=== PATIENT | male | born 1945 | race Caucasian/White ===

== ENCOUNTER 2017-02-15 12:05 | Observation (INO) | payer MEDICARE, BC ==
[~2017-02-15] VITALS: Ht 188 cm; Wt 93.0 kg
[2017-02-15 13:39] LABS: HEMOGLOBIN 15.6 gm/dl (14.0-17.5); RED BLOOD COUNT 4.99 M/UL (4.20-5.50); WHITE BLOOD COUNT 7.8 K/UL (4.5-11.0)
[2017-02-15 14:05] LABS: BUN/CREATININE RATIO 14 (0-10)
[2017-02-16 05:04] LABS: HEMOGLOBIN 15.9 gm/dl (14.0-17.5); RED BLOOD COUNT 5.06 M/UL (4.20-5.50); WHITE BLOOD COUNT 8.3 K/UL (4.5-11.0)
[2017-02-16 05:27] LABS: BUN/CREATININE RATIO 14 (0-10)
[2017-02-17] MEDS ORDERED: LOPRESSOR 25 MG25 MG PO (13:53)
[2017-02-17] MEDS ORDERED: NORVASC 5 MG TAB5 MG PO (13:54)
[2017-02-17] MEDS ORDERED: LISINOPRIL5 MG PO (13:55)
== END 2017-02-17 14:57 | disposition home or self-care (01) ==
LOC: ER1 12:05 → ZEROF 15:57 → M/S 15:57 → ZEROF 15:57 → M/S 22:20
PROVIDERS: Emergency Medicine; ADMIT Hospitalist
DX: I16.0 Hypertensive urgency (principal); D69.6 Thrombocytopenia, unspecified; R53.81 Other malaise; F17.200 Nicotine dependence, unspecified, uncomplicated; Z79.891 Long term (current) use of opiate analgesic; Z79.899 Other long term (current) drug therapy; Z98.49 Cataract extraction status, unspecified eye; Z12.5 Encounter for screening for malignant neoplasm of prostate; D51.9 Vitamin B12 deficiency anemia, unspecified; R30.0 Dysuria; R42 Dizziness and giddiness; I10 Essential (primary) hypertension; R53.1 Weakness
CPT/HCPCS: ECHO; 36415; 71010; 80048; 80053; 80061; 82550; 82553; 82607; 83036; 84443; 84484; 85025; 87086; 93005; 93306; 96374; 96376; 99284; G0103; G0378; J0360

== ENCOUNTER → 2017-02-21 | Outpatient (CLI) | payer MEDICARE, BC ==
[~2017-02-21] MED LIST: LISINOPRIL5 MG PO; LOPRESSOR 25 MG25 MG PO; NORVASC 5 MG TAB5 MG PO
== END ==
LOC: CT 02-20 08:00
DX: G43.909 Migraine, unspecified, not intractable, without status migrainosus (principal); R53.1 Weakness; I10 Essential (primary) hypertension; W19.XXXD Unspecified fall, subsequent encounter; R53.83 Other fatigue; G31.84 Mild cognitive impairment of uncertain or unknown etiology; R42 Dizziness and giddiness; R06.02 Shortness of breath; R79.9 Abnormal finding of blood chemistry, unspecified; Z12.5 Encounter for screening for malignant neoplasm of prostate; R90.89 Other abnormal findings on diagnostic imaging of central nervous system
CPT/HCPCS: 70470; J7050; Q9966

== ENCOUNTER 2021-06-13 12:50 | Inpatient (IN) | payer MEDICARE, BC ==
[~2021-06-13] VITALS: Ht 185.4 cm; Wt 82.0 kg
[~2021-06-13 12:50] MED LIST changes: -LOPRESSOR 25 MG25 MG PO; -NORVASC 5 MG TAB5 MG PO
[2021-06-13 13:51] LABS: HEMOGLOBIN 14.6 gm/dl (14.0-17.5); RED BLOOD COUNT 4.7 M/UL (4.20-5.50); WHITE BLOOD COUNT 8.1 K/UL (4.5-11.0)
[2021-06-13] MEDS ORDERED: LOPRESSOR 25 MG25 MG PO (13:53)
[2021-06-13] MEDS ORDERED: NORVASC10 MG PO (13:54)
[2021-06-13 14:40] LABS: BUN/CREATININE RATIO 22 (0-10)
[2021-06-13] MEDS ORDERED: VITAMIN D21250 MCG PO (16:31)
[2021-06-14 02:51] LABS: HEMOGLOBIN 14.7 gm/dl (14.0-17.5); RED BLOOD COUNT 4.75 M/UL (4.20-5.50); WHITE BLOOD COUNT 9.2 K/UL (4.5-11.0)
[2021-06-14 03:51] LABS: BUN/CREATININE RATIO 19 (0-10)
--- NOTE | 2021-06-14 15:51 | NUR ---
PT REFUSED MRI. I ATTEMPTED TO TALK TO PATIENT AND EDUCATE HIM ON THE IMPORTANCE OF GETTING THE MRI AND THE PURPOSE. THIS DID NOT CHANGE HIS MIND. PT STATED THAT IT WAS "A WASTE OF HIS TIME AND MONEY AND THERE WAS NO WAY HE WAS DOING IT REGARDLESS OF WHAT ANY DOCTOR OR ANYONE ELSE TOLD HIM" MADE AWARE.
--- NOTE | 2021-06-14 18:50 | NUR ---
UPON BEDSIDE SHIFT REPORT PATIENT NOTED TO BE SITTING ON THE EDGE OF THE COUCH, NEXT TO THE WINDOW. EDUCATED PT THAT HE NEEDED TO MOVE SO HE COULD HAVE ACCESS TO HIS CALL LIGHT IT WOULD NOT REACH THAT FAR WELL HIS STRIP ALARM FOR HIS SAFETY. PT REFUSED TO MOVE TO EITHER CHAIR OR BED. EDUCATED PATIENT ON FALL SAFETY AGAIN. PT CONTINUED TO REFUSE TO MOVE AND STATED "IF I FALL IT IS MY RESPONSIBILITY.. IT IS ON ME." I PROPPED PTS DOOR OPEN AND INSTRUCTED HIM TO CALL OUT VERBALLY WHEN HE IS READY TO GET UP. PT VERBALIZED UNDERSTANDING, STATING "GWEN CULLEN, HOW MANY TIMES DO YOU HAVE TO TELL ME THIS SHIT, I WONT GET UP." WILL CONTINUE TO MONITOR.
--- NOTE | 2021-06-14 19:27 | NUR ---
AT APPROXIMATELY 1920 LITTLE CARDONA AND I WENT IN TO GET PATIENT BACK IN EITHER THE BED OR CHAIR. HE WAS UP STANDING BY HIS SINK DRINKING LEMONADE. WHEN WE ASKED HIM TO GET IN THE CHAIR HE STATED "WOW, YOU'RE A GRADE A BITCH, I DONT WANT TO, IM NOT GOING." I THEN ASKED THE PATIENT TO LET US AT LEAST PUT SOCKS ON HIM SINCE THE FLOOR WAS VERY SLICK WITHOUT THEM AND HE MIGHT FALL AND CRITICALLY INJURE HIMSELF. HE STATED "I DONT CARE, I WANT TO ." I ASKED HIM TO VERIFY THAT HE HAD AN ACTIVE DESIRE TO KILL HIMSELF AND HE STATED YES. I ASKED HIM IF HE HAD A PLAN AND HE STATED "YES, YOU BETTER NOT LEAVE ME ALONE." LITTLE CARDONA AND I IMMEDIATELY IMPLEMENTED SUICIDE PRECAUTIONS INCLUDING 1:1 OBSERVATION. I NOTIFIED THE HOUSE SUPERVISER FOR A SITTER. I NOTIFIED WHO ORDERED THE 1:1 SITTER, SUICIDE PRECAUTIONS, AND A PHYSICIATRIC EVALUATION IN THE AM.
--- NOTE | 2021-06-14 22:31 | NUR ---
AT APPROXIMATELY 2100 CLAIM APPROVER DULCE AND MICHELE CALLED ME INTO THE ROOM AND STATED THE PT HAD FALLEN. THEY HAD ALREADY ASSISTED HIM UP OUT OF THE FLOOR. PT WAS STANDING IN THE BATHROOM, URINATING IN THE FLOOR. PER THE CLAIM APPROVER'S PT HAD REQUESTED TO WALK TO THE BATHROOM. THEY ATTMEMPTED TO PUT SOCKS ON HIM BUT HE ADAMANTLY REFUSED WHILE CURSING AT THEM. THEY WALKED HIM INTO THE BATHROOM. HE BEGAN URINATING ON HIMSELF ON THE WAY. THERE WAS URINE IN THE FLOOR AND THEY INSTRUCTED HIM TO STAND STILL FOR A MOMENT SO THEY COULD CLEAN IT UP SO HE WOULDNT FALL. HE REFUSED TO DO THIS AND CONTINUED WALKING TOWARDS THE TOILET. IT WAS THEN THAT HE SLIPPED IN HIS URINE AND FELL ONTO HIS KNEES. THEY ASSISTED HIM OUT OF THE FLOOR. I CAME IN SOON THEY ALERTED ME. I CLEANED THE URINE OUT OF THE FLOOR AND INSTRUCTED HIM TO STAY IN PLACE UNTIL IT WAS SAFE TO MOVE. HE COMPLIED AT THIS POINT AND WE PUT SOCKS ON HIM AND LED HIM TO THE TOILET. ONCE HE WAS FINISHED WE GOT HIM BACK IN BED AND I ASSESSED HIM. VITALS WERE STABLE AND THE ONLY NEW FINDING WAS SOME REDNESS ON HIS KNEES. I ALERTED MEETING SPECIALIST IRMA AND , PHYSICIAN INSERTER. NO NEW ORDERS RECEIVED. SITTER REMAINS AT BEDSIDE WITH ALL FALL PRECAUTIONS IN PLACE, WILL CONTINUTE TO MONITOR.
[2021-06-15 07:30] LABS: HEMOGLOBIN 14.3 gm/dl (14.0-17.5); RED BLOOD COUNT 4.64 M/UL (4.20-5.50); WHITE BLOOD COUNT 7.9 K/UL (4.5-11.0)
[2021-06-15 07:54] LABS: BUN/CREATININE RATIO 15 (0-10)
[2021-06-16 07:18] LABS: HEMOGLOBIN 14.5 gm/dl (14.0-17.5); RED BLOOD COUNT 4.65 M/UL (4.20-5.50); WHITE BLOOD COUNT 7.1 K/UL (4.5-11.0)
[2021-06-16 07:38] LABS: BUN/CREATININE RATIO 17 (0-10)
[2021-06-16] MEDS ORDERED: ASPIRIN EC81 MG PO (16:03)
[2021-06-16] MEDS ORDERED: LIPITOR40 MG PO (16:12)
== END 2021-06-16 18:54 | disposition short-term general hospital (02) | DRG 57 ==
LOC: ER1 12:50 → MED SURG 4 15:07 → CDU 15:07 → MED SURG 4 16:11
PROVIDERS: Emergency Medicine; Physician Assistant; Physician Assistant Medical; ADMIT Internal Medicine
DX: G91.2 (Idiopathic) normal pressure hydrocephalus (principal); M62.82 Rhabdomyolysis; I16.0 Hypertensive urgency; I10 Essential (primary) hypertension; F10.10 Alcohol abuse, uncomplicated; Z20.822 Contact with and (suspected) exposure to COVID-19; R27.0 Ataxia, unspecified; R29.6 Repeated falls; R32 Unspecified urinary incontinence; Z87.891 Personal history of nicotine dependence; Z98.890 Other specified postprocedural states
CPT/HCPCS: 36415; 70450; 70551; 71045; 72141; 73070; 80048; 80053; 80076; 82550; 82553; 83874; 84484; 85025; 85027; 85610; 87040; 93005; 97116-GP-CQ; 97162; 97166; 99285; J1650; J7030; J7040; U0002

== ENCOUNTER → 2021-12-21 | Outpatient (CLI) | payer MEDICARE, BC ==
[~2021-12-21] MED LIST changes: +ASPIRIN EC81 MG PO; +DIAMOX 250 MG250 MG PO; +DILTIAZEM 24HR180 M1 PO; +DITROPAN 5 MG TA5 MG PO; +DONEPEZIL HCL10 MG PO; +FINASTERIDE5 MG PO; +FLOMAX 0.4 MG0.4 MG PO; +KLOR-CON M1010 MEQ PO; +LEXAPRO10 MG PO; +LIPITOR40 MG PO; +LISINOPRIL10 MG PO; -LISINOPRIL5 MG PO; +LOPRESSOR 25 MG25 MG PO; +LOPRESSOR 50 MG50 MG PO; +NORVASC10 MG PO; +VITAMIN D21250 MCG PO
== END ==
LOC: MRI 12-07 13:00
DX: K76.9 Liver disease, unspecified (principal)
CPT/HCPCS: 36415; 82565